=== PATIENT | male | born 1985 | race Caucasian/White ===

== ENCOUNTER 2025-01-16 02:28 | Emergency (ER) | payer MEDICAID ==
[~2025-01-16] VITALS: Ht 175.2 cm; Wt 74.8 kg
[~2025-01-16 02:28] MED LIST: GOOD NEIGHBOR100 M6 PO; MIRTAZAPINE15 MG PO; MULTI VITAMINS1 TAB PO; NATURE'S BLEND F1 MG PO; NEURONTIN100 MG PO; NICOTINE T21 MG/24 H TD; PAXIL30 MG PO; PRILOSEC20 MG PO; PROTONIX40 MG PO; SEROQUEL300 MG PO; Theragran M,Cen1 TAB PO; VITAMIN B-11 TAB PO; ZANTAC150 MG PO
[2025-01-16] MEDS ORDERED: LORazepam 2 MG/ML VIAL IM ONE ×2 (03:00)
[2025-01-16] MEDS ORDERED: diphenhydrAMINE hydrochloride 50 MG/ML VIAL IM ONE (03:00)
== END 2025-01-16 03:56 | disposition short-term general hospital (02) ==
LOC: ED 02:28
DX: S01.111A Laceration without foreign body of right eyelid and periocular area, initial encounter (principal); M79.601 Pain in right arm; M79.602 Pain in left arm; F10.129 Alcohol abuse with intoxication, unspecified; H53.8 Other visual disturbances; Z79.899 Other long term (current) drug therapy; Y04.2XXA Assault by strike against or bumped into by another person, initial encounter; Y93.89 Activity, other specified; Y92.89 Other specified places as the place of occurrence of the external cause; Y99.8 Other external cause status